=== PATIENT | male | born 1995 | race Caucasian/White ===

== ENCOUNTER 2017-10-13 14:31 | Emergency (ER) | payer OTHER ==
[~2017-10-13] VITALS: Ht 167.6 cm; Wt 47.6 kg
[2017-10-13 17:31] LABS: BASOPHIL % 0.4 % (0-2); PLATELET COUNT 243 x10^3mcL (130-400); RED CELL DISTRIBUTION WIDTH 13.4 % (11.5-14.5)
[2017-10-13 17:42] LABS: CALCIUM 9.8 mg/dL (8.5-10.1); CARBON DIOXIDE 26.5 mmol/L (21-32); CREATININE SERUM 1.7 mg/dL (0.7-1.3); POTASSIUM SERUM 4.1 mmol/L (3.5-5.1)
[2017-10-13 17:48] LABS: BILIRUBIN TOTAL 0.9 mg/dL (0.20-1.00)
[2017-10-13 17:49] LABS: ALBUMIN 5.4 g/dL (3.4-5.0); TOTAL PROTEIN, SERUM 9.9 g/dL (6.4-8.2)
[2017-10-13 20:03] LABS: UA SPECIFIC GRAVITY 1.025 (1.005-1.035); microscopic required? YES; urine erythrocyte NEGATIVE (NEGATIVE)
[2017-10-13 20:27] LABS: AMPHETAMINE QUAL UR NONE DETECTED (See below)
[2017-10-13 21:48] VITALS: BP 131/72
== END 2017-10-13 21:48 | disposition home or self-care (01) ==
LOC: ED 14:31
PROVIDERS: Emergency Medicine
DX: R11.10 Vomiting, unspecified (principal); F12.20 Cannabis dependence, uncomplicated; E86.0 Dehydration
CPT/HCPCS: J1630; J2060; J7030

== ENCOUNTER 2018-03-28 08:53 | Emergency (ER) | payer OTHER ==
[~2018-03-28] VITALS: Ht 167.6 cm; Wt 55.3 kg
[2018-03-28 09:24] VITALS: Ht 167.6 cm; Wt 55.3 kg
[2018-03-28 13:07] LABS: microscopic required? NO
[2018-03-28 13:09] LABS: BASOPHIL % 0.2 % (0-2); PLATELET COUNT 194 x10^3mcL (130-400)
[2018-03-28 13:19] LABS: CALCIUM 9.2 mg/dL (8.5-10.1); CHLORIDE SERUM 103 mmol/L (98-107); CREATININE SERUM 1.1 mg/dL (0.7-1.3); GFR1 > 60 mL/min; GLUCOSE SERUM 108 mg/dL (74-106); POTASSIUM SERUM 3.9 mmol/L (3.5-5.1); SODIUM SERUM 139 mmol/L (136-145)
[2018-03-28 13:24] LABS: ALBUMIN 4.2 g/dL (3.4-5.0); ALKALINE PHOSPHATASE 80 U/L (46-116); ALT/SGPT 21 U/L (16-63); AMYLASE 126 U/L (25-115); AST/SGOT 15 U/L (15-37); BILIRUBIN TOTAL 0.5 mg/dL (0.20-1.00); LIPASE 146 IU/L (73-393); TOTAL PROTEIN, SERUM 7.7 g/dL (6.4-8.2)
[2018-03-28 13:34] LABS: urine erythrocyte NEGATIVE (NEGATIVE)
[2018-03-28 15:13] VITALS: BP 116/60
[2018-03-28 15:17] LABS: AMPHETAMINE QUAL UR NONE DETECTED (See below)
== END 2018-03-28 15:13 | disposition home or self-care (01) ==
LOC: ED 08:53
PROVIDERS: Emergency Medicine
DX: R11.10 Vomiting, unspecified (principal); R10.9 Unspecified abdominal pain
CPT/HCPCS: J2405; J3490; J7030